=== PATIENT | male | born 1985 | race Caucasian/White ===

== ENCOUNTER 2020-06-04 19:09 | Emergency (ER) | payer OTHER ==
[~2020-06-04] VITALS: Ht 182.8 cm; Wt 97.5 kg
[2020-06-04 19:51] LABS: BILIRUBIN NEGATIVE (NEGATIVE); BLOOD NEGATIVE (NEGATIVE); CLARITY SL CLOUDY (CLEAR); COLOR YELLOW (YELLOW); GLUCOSE NEGATIVE (NEGATIVE); KETONE TRACE (NEGATIVE); LEUKO ESTERASE NEGATIVE (NEGATIVE); NITRITE NEGATIVE (NEGATIVE); SPECIFIC GRAVITY 1.005 (1.005-1.030); UROBILINOGEN 0.2 E.U./dl (0.2-1.0)
[2020-06-04 19:58] LABS: BACTERIA 2+; EPITHELIAL CELLS 0-2; RBC 0-2 rbc/hpf (0-2)
[2020-06-04] MEDS ORDERED: CIPRO500 MG PO (23:12)
[2020-06-04] MEDS ORDERED: FLAGYL500 MG PO (23:12)
[2020-06-04] MEDS ORDERED: Motrin,Rufen800 MG PO (23:25)
[2020-06-04] MEDS ORDERED: Orphenadrine C100 MG PO (23:25)
== END 2020-06-04 23:57 | disposition home or self-care (01) ==
LOC: ED 19:09
PROVIDERS: Emergency Medicine Emergency Medical Services
DX: S39.012A Strain of muscle, fascia and tendon of lower back, initial encounter (principal); K52.9 Noninfective gastroenteritis and colitis, unspecified; Z88.0 Allergy status to penicillin; X58.XXXA Exposure to other specified factors, initial encounter; Y93.89 Activity, other specified; Y92.89 Other specified places as the place of occurrence of the external cause; Y99.8 Other external cause status